=== PATIENT | female | born 1965 | race Caucasian/White ===

== ENCOUNTER 2024-06-26 13:59 | Inpatient (IN) | payer MEDICAID ==
[~2024-06-26] VITALS: Ht 162.6 cm; Wt 59.0 kg
[2024-06-26] MEDS: HALOPERIDOL LACTATE 5MG/ML VIAL IM ONE (14:39)
[2024-06-26] MEDS: LORAZEPAM 2MG/ML INJ IM ONE (14:39)
[2024-06-26] MEDS: DIPHENHYDRAMINE 50MG/ML VIAL IM STA (14:39)
[2024-06-26 16:02] LABS: BASOPHILS % 0.3 % (0.0-2.0); EOSINOPHILS % 0.1 % (0.0-5.0); HEMATOCRIT. 35.2 % (36.0-48.0); HEMOGLOBIN. 11.4 g/dL (12.0-16.0); LYMPHOCYTES % 10.9 % (20.0-50.0); MEAN CORPUSCULAR HEMOGLOBIN 30.5 pg (28.0-32.0); MEAN CORPUSCULAR HGB CONC 32.3 g/dL (31.0-37.0); MEAN CORPUSCULAR VOLUME 94.3 fL (81.0-99.0); MEAN PLATELET VOLUME 7.8 fl (7.4-10.4); MONOCYTES % 7.2 % (2.0-8.0); NEUTROPHILS % 81.5 % (40.0-76.0); PLATELET 406 x1000/uL (130-400); RED BLOOD CELL COUNT 3.74 mill/uL (4.2-5.4); RED CELL DISTRIBUTION WIDTH 15.7 % (11.6-14.6); WHITE BLOOD COUNT 13.7 x1000/uL (4.5-11.0)
[2024-06-26 16:08] LABS: CHLORIDE 104 mEq/L (98-107); SODIUM 135 mEq/L (136-145)
[2024-06-26 16:09] LABS: CALCIUM 9.5 mg/dL (8.7-10.4); CARBON DIOXIDE 18 mEq/L (21-32)
[2024-06-26 16:12] LABS: AMMONIA < 17 uMol/L (<32)
[2024-06-26 16:14] LABS: CREATININE 0.7 mg/dL (0.6-1.0); GLUCOSE 102 mg/dL (70-105); UREA NITROGEN BLOOD 13 mg/dL (9-23)
[2024-06-26 16:16] LABS: THYROID STIMULATING HORMONE 1.92 uIU/mL (0.55-4.78)
[2024-06-26 16:22] LABS: ETHANOL BLOOD < 10 mg/dL (<10)
[2024-06-26] MEDS ORDERED: ONDANSETRON HCL 4MG/2ML INJ IV PRN (19:45)
[2024-06-26] MEDS ORDERED: MAGNESIUM/ALUMINUM HYDROXIDE/SIMETHICONE 30ML UDC PO PRN (19:45)
[2024-06-26] MEDS ORDERED: HYDRALAZINE 20MG/ML VIAL IV PRN (19:45)
[2024-06-26] MEDS ORDERED: IPRATROPIUM/ALBUTEROL 0.5-3(2.5)MG/3ML NEB HHN PRN (19:45)
[2024-06-26] MEDS ORDERED: PIPERACILLIN/TAZO 3.375G/50ML 50 ML IV NR ×2 (21:00→22:45)
[2024-06-26 22:13] VITALS: BP 131/72; PULSE 83; RESP 18; TEMP 36.61404; O2SAT 100
[2024-06-26] MEDS: DEXT 5%/0.45% NACL 1000ML 1,000 ML IV SCH (23:02)
[2024-06-26] MEDS: FAMOTIDINE 20MG/2ML VIAL IV SCH (23:03)
[2024-06-26] MEDS: PIPERACILLIN/TAZO 3.375G/100ML 100 ML IV NR (23:09)
[2024-06-26] MEDS: VANCOMYCIN 1.25GM PMX (XELLIA) 250 ML IV NR (23:11)
[2024-06-26 23:52] LABS: CREATINE KINASE 105 IU/L (34-145)
[2024-06-26 23:53] LABS: TROPONIN I HIGH SENSITIVITY 4 ng/L (3.0-34)
[2024-06-26 23:53] LABS: LACTIC ACID 2.2 mmol/L (0.4-2.0)
[2024-06-26 23:56] LABS: T4 FREE 1.1 ng/dL (0.89-1.76); THYROID STIMULATING HORMONE 3.18 uIU/mL (0.55-4.78)
[2024-06-27] VITALS (9 sets, daily range): BP systolic 80–148; BP diastolic 40–75; PULSE 57–104; RESP 18–20; TEMP 36.114–37.00296; O2SAT 96–100
[2024-06-27] MEDS: PIPERACILLIN/TAZO 3.375G/100ML 100 ML IV SCH ×2 (05:36→22:38)
[2024-06-27 06:14] LABS: CHLORIDE 105 mEq/L (98-107); POTASSIUM 3.7 mEq/L (3.5-5.1); SODIUM 137 mEq/L (136-145)
[2024-06-27 06:15] LABS: CALCIUM 9.3 mg/dL (8.7-10.4); CARBON DIOXIDE 25 mEq/L (21-32)
[2024-06-27 06:20] LABS: CREATININE 0.6 mg/dL (0.6-1.0); GLUCOSE 88 mg/dL (70-105); TROPONIN I HIGH SENSITIVITY 5 ng/L (3.0-34); UREA NITROGEN BLOOD 9 mg/dL (9-23)
[2024-06-27 06:22] LABS: CREATINE KINASE 98 IU/L (34-145)
[2024-06-27] MEDS: PERMETHRIN 5% CREAM 60GM TOP NR (06:37)
[2024-06-27 06:52] LABS: BASOPHILS % 0.5 % (0.0-2.0); EOSINOPHILS % 2.3 % (0.0-5.0); HEMATOCRIT. 30.4 % (36.0-48.0); HEMOGLOBIN. 9.9 g/dL (12.0-16.0); LYMPHOCYTES % 23.3 % (20.0-50.0); MEAN CORPUSCULAR HEMOGLOBIN 30.5 pg (28.0-32.0); MEAN CORPUSCULAR HGB CONC 32.7 g/dL (31.0-37.0); MEAN CORPUSCULAR VOLUME 93.2 fL (81.0-99.0); MONOCYTES % 10.3 % (2.0-8.0); NEUTROPHILS % 63.6 % (40.0-76.0); PLATELET 395 x1000/uL (130-400); RED BLOOD CELL COUNT 3.26 mill/uL (4.2-5.4); RED CELL DISTRIBUTION WIDTH 15.5 % (11.6-14.6); WHITE BLOOD COUNT 9.2 x1000/uL (4.5-11.0)
[2024-06-27] MEDS: FAMOTIDINE 20MG/2ML VIAL IV SCH (12:27)
[2024-06-27] MEDS: VANCOMYCIN 750MG/150ML (BAXTER) IV SCH (21:00)
[2024-06-27] MEDS: QUETIAPINE FUMARATE 25MG TABLET PO SCH (21:00)
[2024-06-28] VITALS: BP 116/67; PULSE 91; RESP 18; TEMP 36.78072; O2SAT 98
[2024-06-28 04:00] VITALS: BP 135/66; PULSE 80; RESP 18; TEMP 36.61404; O2SAT 97
[2024-06-28 05:47] LABS: BASOPHILS % 0.8 % (0.0-2.0); EOSINOPHILS % 1.7 % (0.0-5.0); HEMATOCRIT. 31.6 % (36.0-48.0); HEMOGLOBIN. 10.5 g/dL (12.0-16.0); LYMPHOCYTES % 27.5 % (20.0-50.0); MEAN CORPUSCULAR HEMOGLOBIN 30.7 pg (28.0-32.0); MEAN CORPUSCULAR HGB CONC 33.4 g/dL (31.0-37.0); MEAN PLATELET VOLUME 7.5 fl (7.4-10.4); MONOCYTES % 8.4 % (2.0-8.0); NEUTROPHILS % 61.6 % (40.0-76.0); PLATELET 435 x1000/uL (130-400); RED BLOOD CELL COUNT 3.44 mill/uL (4.2-5.4); RED CELL DISTRIBUTION WIDTH 14.9 % (11.6-14.6); WHITE BLOOD COUNT 7.6 x1000/uL (4.5-11.0)
[2024-06-28 05:48] LABS: CARBON DIOXIDE 25 mEq/L (21-32); CHLORIDE 105 mEq/L (98-107); POTASSIUM 3.7 mEq/L (3.5-5.1); SODIUM 139 mEq/L (136-145)
[2024-06-28 05:49] LABS: CALCIUM 9.1 mg/dL (8.7-10.4)
[2024-06-28 05:54] LABS: CREATININE 0.6 mg/dL (0.6-1.0); GLUCOSE 118 mg/dL (70-105); UREA NITROGEN BLOOD 8 mg/dL (9-23)
[2024-06-28 05:56] LABS: CREATINE KINASE 88 IU/L (34-145)
[2024-06-28 08:00] VITALS: BP 130/72; PULSE 82; RESP 24; TEMP 36.28068; O2SAT 100
[2024-06-28 16:00] VITALS: BP 175/84; PULSE 90; RESP 24; TEMP 36.55848; O2SAT 97
[2024-06-28 20:00] VITALS: BP 111/57; PULSE 71; RESP 18; TEMP 36.28068; O2SAT 98
[2024-06-29] VITALS: BP 112/61; PULSE 86; RESP 18; TEMP 36.50292; O2SAT 99
[2024-06-29 08:00] VITALS: BP 150/75; PULSE 84; RESP 18; TEMP 36.55848; O2SAT 98
[2024-06-30 04:00] VITALS: BP 149/67; PULSE 90; RESP 18; TEMP 37.00296; O2SAT 98
[2024-06-30 07:21] LABS: HEMATOCRIT 34.5 % (36.0-48.0); HEMOGLOBIN 11.7 g/dL (12.0-16.0); MEAN CORPUSCULAR HGB CONC 33.8 g/dL (31.0-37.0); MEAN CORPUSCULAR VOLUME 91.7 fL (81.0-99.0); PLATELET 509 x1000/uL (130-400); RED BLOOD CELL COUNT 3.77 mill/uL (4.2-5.4); RED CELL DISTRIBUTION WIDTH 14.4 % (11.6-14.6); WHITE BLOOD COUNT 9.8 x1000/uL (4.5-11.0)
[2024-06-30 07:41] LABS: CARBON DIOXIDE 25 mEq/L (21-32); CHLORIDE 103 mEq/L (98-107); POTASSIUM 4.2 mEq/L (3.5-5.1); SODIUM 138 mEq/L (136-145)
[2024-06-30 07:42] LABS: CALCIUM 9.6 mg/dL (8.7-10.4)
[2024-06-30 07:47] LABS: CREATININE 0.6 mg/dL (0.6-1.0); GLUCOSE 96 mg/dL (70-105); UREA NITROGEN BLOOD 8 mg/dL (9-23)
[2024-06-30 07:49] LABS: PHOSPHORUS 3.1 mg/dL (2.5-4.9)
[2024-06-30 08:43] LABS: HIV 1/2 AB P24AG Negative (Negative)
[2024-06-30 08:54] LABS: VITAMIN B12 SERUM 1507 pg/mL (211-911)
[2024-06-30] MEDS: HALOPERIDOL LACTATE 5MG/ML VIAL IM PRN (10:28)
[2024-06-30] MEDS: OLANZAPINE 5MG TABLET ODT PO SCH (14:24)
[2024-06-30 20:00] VITALS: BP 155/79; PULSE 98; RESP 19; TEMP 37.11408; O2SAT 97
[2024-07-01] VITALS: BP 150/84; PULSE 88; RESP 19; TEMP 36.55848; O2SAT 98
[2024-07-01 04:00] VITALS: BP 147/89; PULSE 84; RESP 19; TEMP 36.50292; O2SAT 97
[2024-07-01 08:00] VITALS: BP 125/71; PULSE 85; RESP 18; TEMP 35.89176; O2SAT 100
[2024-07-01] MEDS ORDERED: DOCUSATE SODIUM 250MG CAPSULE PO PRN (08:30)
[2024-07-01 12:00] VITALS: BP 157/76; PULSE 95; RESP 17; TEMP 36.3918; O2SAT 100
[2024-07-01] MEDS ORDERED: HYDRALAZINE 10 MG in SODIUM CHLORIDE 0.9% 49.5 ML IV PRN (12:15)
[2024-07-01 16:00] VITALS: BP 117/88; PULSE 100; RESP 18; TEMP 36.50292; O2SAT 100
[2024-07-01 20:00] VITALS: BP 149/82; PULSE 108; RESP 19; TEMP 36.6696; O2SAT 98
[2024-07-01] MEDS: ACETAMINOPHEN 325MG TABLET PO PRN (20:49)
[2024-07-01] MEDS ORDERED: AMLODIPINE 5MG TABLET PO SCH (21:00)
[2024-07-02] VITALS: BP 100/64; PULSE 81; RESP 19; TEMP 36.6696; O2SAT 100
[2024-07-02 04:00] VITALS: BP 89/54; PULSE 83; RESP 19; TEMP 36.61404; O2SAT 100
[2024-07-02] MEDS: FAMOTIDINE 20MG TABLET PO SCH (06:34)
[2024-07-02 08:00] VITALS: BP 94/50; PULSE 62; RESP 17; TEMP 36.61404; O2SAT 97
[2024-07-02 09:31] LABS: CHLORIDE 109 mEq/L (98-107); POTASSIUM 3.5 mEq/L (3.5-5.1); SODIUM 143 mEq/L (136-145)
[2024-07-02 09:32] LABS: CALCIUM 9.4 mg/dL (8.7-10.4); CARBON DIOXIDE 23 mEq/L (21-32)
[2024-07-02 09:36] LABS: HEMOGLOBIN 11.4 g/dL (12.0-16.0); MEAN CORPUSCULAR HEMOGLOBIN 31.1 pg (28.0-32.0); MEAN CORPUSCULAR HGB CONC 33.6 g/dL (31.0-37.0); MEAN CORPUSCULAR VOLUME 92.7 fL (81.0-99.0); PLATELET 485 x1000/uL (130-400); RED BLOOD CELL COUNT 3.67 mill/uL (4.2-5.4); RED CELL DISTRIBUTION WIDTH 14.9 % (11.6-14.6); WHITE BLOOD COUNT 8.1 x1000/uL (4.5-11.0)
[2024-07-02 09:37] LABS: CREATININE 0.5 mg/dL (0.6-1.0); GLUCOSE 102 mg/dL (70-105); UREA NITROGEN BLOOD 11 mg/dL (9-23)
[2024-07-02 12:00] VITALS: BP 154/74; PULSE 99; RESP 17; TEMP 36.50292; O2SAT 100
[2024-07-02 16:00] VITALS: BP 152/86; PULSE 104; RESP 19; TEMP 36.89184; O2SAT 99
[2024-07-02 20:00] VITALS: PULSE 96; RESP 19; TEMP 36.3918; O2SAT 98
[2024-07-02] MEDS: OLANZAPINE 5MG TABLET ODT PO SCH (20:38)
[2024-07-02] MEDS: LORAZEPAM 0.5MG TABLET PO PRN (23:04)
[2024-07-03 08:00] VITALS: BP 162/82; PULSE 86; RESP 19; TEMP 36.3918; O2SAT 98
[2024-07-03] MEDS ORDERED: OLANZAPINE 5MG TABLET ODT PO SCH (09:00)
[2024-07-03] MEDS: OLANZAPINE 5MG TABLET ODT PO SCH (09:04)
[2024-07-03 12:00] VITALS: BP 150/78; PULSE 104; RESP 19; TEMP 36.28068; O2SAT 98
[2024-07-03 16:00] VITALS: BP 169/78; PULSE 102; RESP 19; TEMP 36.28068; O2SAT 98
[2024-07-03 20:00] VITALS: BP 137/80; PULSE 107; RESP 19; TEMP 36.28068; O2SAT 100
[2024-07-04] VITALS: BP 168/85; PULSE 95; RESP 19; TEMP 36.50292; O2SAT 97
[2024-07-04 04:00] VITALS: BP 143/81; PULSE 101; RESP 19; TEMP 36.3918; O2SAT 100
[2024-07-04 08:00] VITALS: BP 159/99; PULSE 104; RESP 19; TEMP 36.55848; O2SAT 94
[2024-07-04 12:00] VITALS: BP 169/88; PULSE 95; RESP 19; TEMP 36.61404; O2SAT 95
[2024-07-04 16:00] VITALS: BP 146/75; PULSE 114; RESP 19; TEMP 36.55848; O2SAT 93
[2024-07-05] VITALS: BP 118/74; PULSE 94; RESP 19; TEMP 36.6696; O2SAT 100
[2024-07-05 04:00] VITALS: BP 111/79; PULSE 84; RESP 19; TEMP 37.00296; O2SAT 100
[2024-07-05 08:00] VITALS: BP 134/83; PULSE 86; RESP 19; TEMP 37.11408; O2SAT 98
[2024-07-05 12:00] VITALS: BP 141/69; PULSE 81; RESP 19; TEMP 37.89192; O2SAT 99
[2024-07-05 16:00] VITALS: BP 143/98; PULSE 103; RESP 18; TEMP 38.22528; O2SAT 99
[2024-07-05] MEDS ORDERED: ACETAMINOPHEN 1000MG/100ML 100 ML IV PRN (18:15)
[2024-07-05] MEDS ORDERED: ACETAMINOPHEN 650MG SUPP PR PRN (18:45)
[2024-07-05 20:00] VITALS: BP 144/87; PULSE 107; RESP 20; TEMP 36.55848; O2SAT 97
[2024-07-05 21:57] LABS: BASOPHILS % 0.7 % (0.0-2.0); HEMATOCRIT. 36.7 % (36.0-48.0); LYMPHOCYTES % 19.1 % (20.0-50.0); MEAN CORPUSCULAR HEMOGLOBIN 30.6 pg (28.0-32.0); MEAN CORPUSCULAR HGB CONC 32.8 g/dL (31.0-37.0); MEAN CORPUSCULAR VOLUME 93.1 fL (81.0-99.0); MEAN PLATELET VOLUME 8.1 fl (7.4-10.4); MONOCYTES % 6.2 % (2.0-8.0); PLATELET 485 x1000/uL (130-400); RED BLOOD CELL COUNT 3.94 mill/uL (4.2-5.4); RED CELL DISTRIBUTION WIDTH 14.9 % (11.6-14.6); WHITE BLOOD COUNT 11.8 x1000/uL (4.5-11.0)
[2024-07-05 22:02] LABS: CHLORIDE 106 mEq/L (98-107); POTASSIUM 3.6 mEq/L (3.5-5.1); SODIUM 141 mEq/L (136-145)
[2024-07-05 22:03] LABS: CALCIUM 9.8 mg/dL (8.7-10.4); CARBON DIOXIDE 22 mEq/L (21-32)
[2024-07-05 22:08] LABS: CREATININE 0.6 mg/dL (0.6-1.0); GLUCOSE 147 mg/dL (70-105); UREA NITROGEN BLOOD 19 mg/dL (9-23)
[2024-07-06] VITALS: BP 158/85; PULSE 100; RESP 20; TEMP 36.16956; O2SAT 96
[2024-07-06 04:00] VITALS: BP 115/81; PULSE 94; RESP 18; TEMP 35.94732; O2SAT 97
[2024-07-06 08:00] VITALS: BP 160/79; PULSE 90; RESP 18; TEMP 36.22512; O2SAT 98
[2024-07-06] MEDS: OLANZAPINE 5MG TABLET ODT PO SCH (09:09)
[2024-07-06 10:10] LABS: BASOPHILS % 0.7 % (0.0-2.0); EOSINOPHILS % 2.1 % (0.0-5.0); HEMATOCRIT. 35.9 % (36.0-48.0); HEMOGLOBIN. 11.9 g/dL (12.0-16.0); MEAN CORPUSCULAR HEMOGLOBIN 30.6 pg (28.0-32.0); MEAN CORPUSCULAR HGB CONC 33.1 g/dL (31.0-37.0); MEAN CORPUSCULAR VOLUME 92.2 fL (81.0-99.0); MEAN PLATELET VOLUME 7.9 fl (7.4-10.4); MONOCYTES % 5.4 % (2.0-8.0); NEUTROPHILS % 68.8 % (40.0-76.0); PLATELET 483 x1000/uL (130-400); RED BLOOD CELL COUNT 3.89 mill/uL (4.2-5.4); RED CELL DISTRIBUTION WIDTH 14.5 % (11.6-14.6); WHITE BLOOD COUNT 10.1 x1000/uL (4.5-11.0)
[2024-07-06 10:36] LABS: CHLORIDE 106 mEq/L (98-107); POTASSIUM 3.5 mEq/L (3.5-5.1); SODIUM 141 mEq/L (136-145)
[2024-07-06 10:37] LABS: CALCIUM 9.8 mg/dL (8.7-10.4); CARBON DIOXIDE 26 mEq/L (21-32)
[2024-07-06 10:42] LABS: CREATININE 0.5 mg/dL (0.6-1.0); GLUCOSE 123 mg/dL (70-105); UREA NITROGEN BLOOD 18 mg/dL (9-23)
[2024-07-06 12:00] VITALS: BP 152/84; PULSE 104; RESP 21; TEMP 36.9474; O2SAT 100
[2024-07-06 20:00] VITALS: BP 122/81; PULSE 91; RESP 20; TEMP 35.8362; O2SAT 100
[2024-07-07] VITALS: BP 113/61; PULSE 60; RESP 20; TEMP 36.114; O2SAT 98
[2024-07-07 04:00] VITALS: BP 120/71; PULSE 74; RESP 20; TEMP 35.72508; O2SAT 97
[2024-07-07 08:00] VITALS: BP 128/75; PULSE 92; RESP 18; TEMP 36.3918; O2SAT 99
[2024-07-07 16:00] VITALS: BP 139/70; PULSE 103; RESP 20; TEMP 37.11408; O2SAT 98
[2024-07-07 20:00] VITALS: BP 136/76; PULSE 98; RESP 18; TEMP 36.16956
[2024-07-08] VITALS: BP 155/91; PULSE 90; RESP 18; TEMP 35.89176; O2SAT 97
[2024-07-08 04:00] VITALS: BP 150/92; PULSE 92; RESP 20; TEMP 36.16956; O2SAT 98
[2024-07-08 08:00] VITALS: BP 142/84; PULSE 96; RESP 19; TEMP 36.22512; O2SAT 96
[2024-07-08 12:00] VITALS: BP_SYST 122; BP_SYST 124; BP_DIAS 76; BP_DIAS 84; PULSE 104; PULSE 97; RESP 20; TEMP 36.3918; TEMP 36.50292; O2SAT 98; O2SAT 99
[2024-07-08 16:00] VITALS: BP 122/84; PULSE 97; RESP 20; TEMP 36.50292; O2SAT 99
[2024-07-09 08:00] VITALS: BP 105/75; PULSE 60; RESP 18; TEMP 36.61404; O2SAT 95
[2024-07-09] MEDS: OLANZAPINE 5MG TABLET ODT PO SCH (10:37)
[2024-07-09 11:43] VITALS: BP 121/70; PULSE 82; RESP 19; TEMP 36.61404; O2SAT 96
[2024-07-09] MEDS ORDERED: TRAZODONE HCL 50MG TABLET PO PRN (14:00)
[2024-07-09] MEDS: SERTRALINE HCL 25MG TABLET PO SCH (14:18)
[2024-07-09] MEDS: LACTATED RINGERS 1,000 ML IV ONE (15:00)
[2024-07-09 16:00] VITALS: BP 120/60; PULSE 89; RESP 19; TEMP 36.61404; O2SAT 96
[2024-07-09 20:00] VITALS: BP 122/69; PULSE 87; RESP 18; TEMP 37.05852; O2SAT 98
[2024-07-10] VITALS: BP 130/65; PULSE 92; RESP 20; TEMP 36.3918; O2SAT 99
[2024-07-10 04:00] VITALS: BP 124/70; PULSE 98; RESP 18; TEMP 35.61396; O2SAT 96
[2024-07-11 16:00] VITALS: BP 126/95; PULSE 46; RESP 18; TEMP 36.61404; O2SAT 98
[2024-07-12 08:00] VITALS: BP 133/79; PULSE 60; RESP 18; TEMP 36.61404; O2SAT 95
[2024-07-12 10:51] VITALS: BP 133/79; PULSE 60; TEMP 97.9; O2SAT 95
[2024-07-12 11:53] VITALS: BP 135/84; PULSE 101; RESP 18; TEMP 36.61404; O2SAT 96
== END 2024-07-12 12:30 | disposition home or self-care (01) | DRG 52 ==
LOC: ER 14:21 → EDBEDREQ 18:27 → EDBEDREQTM 18:27 → 5WST 21:46 → 6EST 06-30 13:58
PROVIDERS: ADMIT Hospitalist; ATTEND Hospitalist
DX: G92.8 Other toxic encephalopathy (principal); R65.10 Systemic inflammatory response syndrome (SIRS) of non-infectious origin without acute organ dysfunction; E87.20 Acidosis, unspecified; C64.9 Malignant neoplasm of unspecified kidney, except renal pelvis; C78.7 Secondary malignant neoplasm of liver and intrahepatic bile duct; F31.2 Bipolar disorder, current episode manic severe with psychotic features; B85.0 Pediculosis due to Pediculus humanus capitis; E86.0 Dehydration; E78.5 Hyperlipidemia, unspecified; F99 Mental disorder, not otherwise specified; E83.42 Hypomagnesemia; D75.839 Thrombocytosis, unspecified; E87.6 Hypokalemia; Z99.2 Dependence on renal dialysis
CPT/HCPCS: 36415; 71045; 80048; 80061; 80202; 80320; 82140; 82550; 82607; 82962; 83605; 83735; 84100; 84145; 84439; 84443; 84484; 85025; 85027; 85651; 86592; 92610; 97112; 97116; 97162; 97166; 97535; 99291; A4606; C1893; J1200; J1630; J2060; J2543; J3370; J3490; G0480